=== PATIENT | female | born 1960 | race Caucasian/White ===

== ENCOUNTER → 2016-12-13 | Outpatient (CLI) | payer BC ==
--- NOTE | ~2016-12-13 | ENPV ---
Vascular Lower Extremities DVT Study Procedure Demographics Patient Name MARGO CHACON Date of Study 12/13/2016 Patient Number [id number] Gender Female Date of 1960 Age 56 Visit Number [id number] Height Accession Number [id number] Weight Room Number BSA BMI Referring Morgan Stratton MD Interpreting Reji Pierre MD Physician Physician Physician Ordering Morgan Stratton MD Chief Dietitian Physician Animation Producer Corinna [facility], [facility] Conclusions Summary No evidence of deep vein thrombosis or superficial thrombophlebitis in the right lower extremity. Procedure Type of Study: Veins:Lower Extremities DVT Study, Lower Extremity Right. Indications for Study:Pain in Limb. Appropriate Use Criteria:9 Patient Status:STAT. Study Location:Vascular Lab. Technical Quality:Adequate visualization. Velocities are measured in cm/s ; Diameters are measured in cm Right Lower Extremities DVT Study Measurements Right 2D and Doppler Measurements + + + + +------+------+ + !Location !Visualized!Compressibility!Thrombosis!Signal!Reflux!Reflux ! ! ! ! ! ! ! !(sec) ! + + + + +------+------+ + !GSV Thigh !Yes !Yes !None !Phasic! ! ! + + + + +------+------+ + !Common !Yes !Yes !None !Phasic! ! ! !Femoral ! ! ! ! ! ! ! + + + + +------+------+ + !Prox !Yes !Yes !None !Phasic! ! ! !Femoral ! ! ! ! ! ! ! + + + + +------+------+ + !Mid Femoral!Yes !Yes !None !Phasic! ! ! + + + + +------+------+ + !Dist !Yes !Yes !None !Phasic! ! ! !Femoral ! ! ! ! ! ! ! + + + + +------+------+ + !Popliteal !Yes !Yes !None !Phasic! ! ! + + + + +------+------+ + !Gastroc !Yes !Yes !None !Phasic! ! ! + + + + +------+------+ + !PTV !Yes !Yes !None ! ! ! ! + + + + +------+------+ + !Peroneal !Yes !Yes !None ! ! ! ! + + + + +------+------+ + Signature dtt: CARLO BLANCO dtd: 12/13/16 1915 Physician Self Edit
== END | disposition disaster alternative care site (69) ==
LOC: GVAS 18:42
DX: M79.651 Pain in right thigh (principal); R79.1 Abnormal coagulation profile